=== PATIENT | female | born 1995 | race Caucasian/White ===

== ENCOUNTER → 2018-02-03 14:05 | Outpatient (CLI) | payer BC, SELFPAY ==
[2018-02-03 16:01] LABS: hCG Titer Quant., Serum < 1 mIU/mL (<9 non-preg)
== END ==
PROVIDERS: Visit Provider Obstetrics & Gynecology
DX: O20.0 Threatened abortion (principal)
CPT/HCPCS: 36415; 84702; 86850; 86900

== ENCOUNTER 2025-06-12 06:28 | Emergency (ER) | payer SELFPAY ==
[2025-06-12 06:28] VITALS: BP 150/95; PULSE 81; RESP 18; TEMP 36.9; O2SAT 99; BMI 34.7
[2025-06-12 06:31] VITALS: BP 142/85; PULSE 81; RESP 18; TEMP 36.9; O2SAT 99
--- NOTE | 2025-06-12 06:50 | EDS_ITS ---
HPI HPI - URI History of Present Illness Chief Complaint: Sore Throat Informant: patient Onset/Context/Timing Onset: Days Context: Gradual Onset Timing: Continuous Current Severity: Mild Maximum Severity: Mild Narrative Narrative: Healthy 29-year-old female no CeeNU past medical or surgical history. States she has had a sore throat for the last several days initially both sides now primarily left. Mild left earache. Denies chills. Subjectively has felt warm. Able to swallow. Prior similar symptoms: Yes Recent Illness/Hospitalization: No ROS ROS ED ROS Narrative Sore throat. Subjective fever. Constitutional Constitutional ED: Reports fever(s) and subjective Eyes Eyes: Denies blurry vision ENT ENT ED: Reports ear pain and sore throat Cardiovascular Cardiovascular: Denies chest pain Respiratory/Chest Respiratory/Chest: Denies cough or dyspnea Gastrointestinal Gastrointestinal: Denies abdominal pain Genitourinary Genitourinary ED: Denies dysuria or hematuria Musculoskeletal Musculoskeletal: Denies arthralgias or back pain Integumentary Denies abscess or Abrasions Neurologic Neurologic: Denies headache(s) Psychiatric Psychiatric: Denies anxiety or depression Endocrine Endocrinology: Denies cold intolerance Hematologic/Lymphatic Hematologic/Lymphatic: Denies easy bleeding, easy bruising or lymphadenopathy Allergic/Immunologic Allergic/Immunologic ED: Denies mouth swelling, tongue swelling or urticaria PFSH PFSH no medical history Home Medications ?Medication ?Instructions ?Recorded ?Last Taken ?Type Control 06/06/14 Unknown History amoxicillin 500 mg capsule 500 mg PO TID 7 days #21 ca ps 06/12/25 Unknown Rx Allergy/AdvReac Type Severity Reaction Status Date / Time No Known Allergies Allergy Verified 08/19/22 14:01 Surgical History Hx of cholecystectomy Social History Smoking Status: Current every day smoker tobacco type: e-cigarettes EXAM Physical Exam Narrative Exam Narrative: 29-year-old female sitting upright in bed vital signs stable afebrile does not look septic toxic no distress. No family present. H EENT exam pupils round reactive light. Moist mucous membranes. Posterior pharynx left tonsil is enlarged both have exudate left tonsil is red. She is able to swallow no stridor or drooling. Able to handle her own secretions. No peritonsillar abscess. TMs are normal. Neck she is tender and mildly swollen lymphadenopathy on the left anterior chain. Posterior chain is nontender. Trachea midline. Back nontender. Lungs clear equal and symmetrical bilaterally. Heart regular rhythm rate about 80 no murmur. Chest wall and ribs are nontender. Abdomen s oft nontender. There is no axillary or inguinal lymphadenopathy. Moving all 4 extremities. Nontender no edema no rash. Neurologically she is awake and alert. Answering questions following commands. Const Vital Signs: 06/12/25 06:28 06/12/25 06:31 Temperature 98.4 F 98.4 F Temperature Source Oral Oral Pulse Rate 81 81 Respiratory Rate 18 18 Blood Pressure 150/95 H 142/85 H Blood Pressure Mean 113 104 Pulse Ox 99 99 Oxygen Delivery Method Room Air Room Air Positive well nourished and well developed; Negative for cachectic or contractures General Appearance ED: well developed; Negative for cachectic, contractures, cyanotic, diaphoretic or pallor Nutritional Appearance: Negative for cachectic HEENT Reports moist mucous membranes HEENT Narrative: Bilateral tonsils with exudate. Left mildly red and swollen. Right tonsil is not enlarged. No peritonsillar abscess. Able to handle her own secretions. normocephalic Throat: Negative for posterior oropharynx normal Eyes PERRL and EOMs intact bilaterally Neck No no lymphadenopathy, supple, no meningeal signs and no JVD General: lymphadenopathy; Negative for anterior neck swelling Resp normal respiratory effort and clear to auscultation bilaterally Cardio S1 normal heart sound, S2 normal heart sound and no murmurs GI non-tender, non-distended and no masses Auscultation: normoactive bowel sounds Palpation: soft; Negative for tender, guarding, hepatomegaly, splenomegaly or mass Back/Spine no CVA tenderness and normal ROM General Back: Negative for CVA tenderness Cervical Spine: Negative for cervical spine tenderness Thoracic Spine / Upper Back: Negative for thoracic spinal tenderness Lumbar Spine / Lower Back: Negative for lumbar spinal tenderness Sacrum: Negative for tenderness Extremity normal to inspection and full ROM General Extremety ED: Negative for cyanosis or tenderness General Extremity: Negative for cyanosis Neuro oriented x3 and CN's II-XII intact bilaterally Sensorium / Orientation: alert, oriented to person, oriented to place and oriented to time; Negative for orientation impaired Motor Exam: strength 5/5 throughout Psych mental status grossly normal Skin General Skin Exam: Negative for jaundice or pallor Lesions: no lesions Rashes: no rashes Trauma: Negative for abrasion or laceration MDM MDM MDM Narrative Medical decision making narrative: 29-year-old female sore throat with left earache with left tonsil is red mildly swollen with exudate consistent with strep pharyngitis. Patient I discussed treatment options she deferred testing. She be started on amoxicillin 500 3 times daily for 7 days. First dose given here. Warm salt water gargle. Follow-up if not improving. She has no axillary or inguinal lymphadenopathy no posterior chain lymphadenopathy I do not think this is mono. History & Record Review Discussion w/independent historian: Patient Additional record(s) reviewed:: Prior inpatient record, Prior outpatient record, Prior ED visit and Prior labs Discharge Plan Triage Chief Complaint: Sore Throat ED Provider: Juan Ramon Alvarez Dx/Rx/DC Orders Clinical Impression: Strep throat Instructions: ED Tonsillitis (Strep Throat) Prescriptions: New amoxicillin 500 mg capsule 500 mg PO TID 7 Days Qty: 21 0RF No Action Control Primary Care Provider: Care Physician,No Primary Referrals: Clint Franco MD [Med Staff - Civil Litigation Attorney] - 3-5 Days if not improving Care Physician,No Primary [Primary Care Provider] - Activity Restrictions/Additional Instructions: The antibiotic amoxicillin 3 times a day. Till gone. Motrin for pain and swelling and Tylenol for pain. Warm salt water gargling. Clinically this looks like strep throat. Plenty of fluids. Rest. Follow-up if not improving. Return if worse. It may take 3 days or so for the antibiotics to really start kicking in and you start to feel better. Make sure you finish antibiotics. Print Language: Jamaican Disposition Disposition: Home, Self Care
[2025-06-12 06:54] VITALS: BP 147/75; PULSE 69; RESP 18; TEMP 36.7; O2SAT 99
[2025-06-12] MEDS: AMOXICILLIN 500 MG CAPSULE PO (06:57)
--- OUTSIDE RECORDS SUMMARY | 2025-06-12 07:09 | XMS RPT_ITS | CCD ---
Author Organization [facility] Care Team Providers Care Inverted Block Operator Name Role Phone Care Physician, No Primary Primary Care Unava ilioana Care Physician, No Primary Referring William Vanegas Attending Unavailable Care Physician, No Primary Referring William Vanegas Attending Unavailable Care Physician, No Primary Primary Care Brie Jacobs PA, William Attending Jolene Jacobs PA, William Attending Unavailable Care Physician, No Primary Primary Care Provider Unavailable Antonio MOONEY, Dr. Delatorre Emergency Provider Medications Current Medications Medication Drug Class(es) Dates Sig (Normalized) Sig (Original) amoxicillin 500 mg oral capsule (1 source) Penicillin-class Antibacterial Start: 06-12-2025 take 1 capsule by mouth three times daily Amoxicillin 500 mg capsule Active 500 mg PO THREE TIMES A DAY 21 7 0 June 12, 2025 12:00am Control (1 source) Start: 06-06-2014 Control Active June 06, 2014 12:00am Completed/Discontinued Medications Medication Drug Class(es) Dates Sig (Normalized) Sig (Original) phenazopyridine hydrochloride 200 mg oral tablet (1 source) Start: 06-06-2014 End: 10-04-2021 take 1 tablet by mouth three times daily Phenazopyridine 200 MG tablet Discontinued 200 mg PO THREE TIMES A DAY 9 0 June 06, 2014 12:00am October 04, 2021 8:39am sulfamethoxazole 800 mg / trimethoprim 160 mg oral tablet (1 source) Dihydrofolate Reductase Inhibitor Antibacterial, Sulfonamide Antimicrobial Start: 06-06-2014 End: 10-04-2021 Sulfamethoxazole-Tr imethoprim 1 TABLET tablet Discontinued 1 {tbl} PO TWICE A DAY 10 0 June 06, 2014 12:00am October 04, 2021 8:40am Problems Active Problems Problem Classification Problem Date Documented Date Episodic/Chronic Other nervous system disorders (1 source) Loss of sense of smell; Translations: [Anosmia] 10-04-2021 Episodic Other upper respiratory infections (2 sources) Streptococcal sore throat; Translations: [Streptococcal pharyngitis] 06-12-2025 Episodic Viral infection (1 source) Disease caused by 2019-nCoV; Translations: [COVID-19] 10-04-2021 Episodic Viral infection (1 source) COVID-19; Translations: [U07.1 - COVID-19] Onset: 01-29-2022 Past or Other Problems Problem Classification Problem Date Documented Da te Episodic/Chronic Other nervous system disorders (1 source) Anosmia; Translations: [R43.0 - Anosmia] Onset: 01-29-2022 Episodic Results Test Name Value Interpretation Reference Range Facil it Office Visit Reporton 2024 Office Visit Report [facility] [address] [place] [address] OFFICE VISIT Date of Service: 03/03/25 MR#: [id number] Acct: [id number] Patient: TACO GROSSMAN Rep #: [id number] : 1995 Provider: RENA Hernandez Age/Sex: 29/F Location: [facility] Status: Signed Intake Intake Visit Reasons: PE NON DOT DRUG SCREEN,ISAIAS/ [place] Office Procedures [facility] Billing Sheet Testing Breath Alcohol Test Pre-Employment: Yes Pre-Employment Drug Screen: Yes Pre-Employment PE: Yes 03/09/25 0757 Date William CHASE Cosigner Signature: Date (if applicable) CC: Normal [facility] Urgent Care Visit Reporton 0 03-03-2025 Urgent Care Visit Report [facility] [address] , [address] [place] [address] OFFICE VISIT Date of Service: 03/03/25 MR#: [id number] Acct: [id number] Name: TACO GROSSMAN Rep #: [id number] : 1995 Provider: RENA Hernandez Age/Sex: 29/F Location: [facility] Status: Signed Intake Intake Visit Reasons: PE NON DOT PHYSICAL/ [place] [facility] HPI HPI Details: TACO GROSSMAN, is a 29 F who presents to the office today for preemployment physical. Please see corresponding scanned documents with today's date. Office Procedures Physical Exam Coding PE Coding Pre-employment PE: Yes Coding Level of Care Code Attention David Diagnoses Encounter for pre-employment health screening examination Z02.1 Assessment and Plan Assessment and Plan (1) Encounter for pre-employment health screening examination: Status: Acute 03/03/25 1221 Date William Quiñones Signature: Date (if applicable) CC: Normal [facility] Urgent Care Visit Reporton 1 Urgent Care Visit Report [facility] [address] [place] [address] OFFICE VISIT Date of Service: 08/19/22 MR#: [id number] Acct: [id number] Name: TACO GROSSMAN Rep #: [id number] : 1995 Provider: RENA Jacobs Age/Sex: 26/F Location: [facility] Status: Signed Intake Vital Signs 08/19/22 14:00 BP 142/82 H Blood Pressure Location Lt brachial Position Sitting Respiration 15 Pulse 82 Pulse Source Monitor Temp 97.6 F L Temp Source Temporal Pulse Oximetry (%) 98 Oxygen Delivery Method room air Intake Visit Reasons: FEVER/SORE THROAT Allergies No Known Allergies Allergy (Verified 08/19/22 14:01) Medications Control 06/06/14 [History Confirmed 08/19/22] [facility] Surgical History Hx of cholecystectomy Social History Smoking Status: Unknown if ever smoked HPI HPI Details: TACO GROSSMAN, is a 26 F who presents to the office today for complaint of fever and sore throat. Patient states being concerned for strep and is requesting a strep test at this time. She reports a fever with a T-max of 102.1 ???F which has come down with Tylenol. No cough, shortness of breath or difficulty breathing. No nausea, vomiting, diarrhea. No other associated symptoms or alleviating/aggravatin g factors. ROS Const Constitutional: No other (6 system ROS completed with pertinent findings in HPI otherwise normal.) Exam Const General: cooperative and well developed HENMT Head: normal to inspection and atraumatic Ears: hearing grossly normal bilaterally Nose: nasal discharge clear Face and sinus: normal facial exam Mouth: oral mucosae normal Throat: abnormal tonsil bilaterally hypertrophy 1+ Resp Effort Inspection: normal respiratory effort and no audible wheezes Auscultation: Bilateral: Clear to Auscultation Cardio Palpation: normal PMI Rate: regular rate Rhythm: regular rhythm Neuro General: patient alert and CN's II-XI intact bilaterally Psych Appearance: grossly normal Mental Status: mental status grossly normal Results POC Dorota Rapid Strep POC Dorota Rapid Strep Negative Last Edit by Rhona Burnette RN on 08/19/22 14:17 Coding Level of Care Code Off vis,est,level 3 Diagnoses Acute pharyngitis J02.9 Assessment and Plan Assessment and Plan (1) Acute pharyngitis: Status: Acute Plan: Patient tested negative for strep in the office today. Encouraged to get plenty of rest, drink lots of clear liquids, and use Tylenol or Ibuprofen (unless contraindicated) for fever and comfort. Patient also educated on other symptomatic management techniques. To be seen in 7-10 days if no improvement; sooner if worsening of symptoms. Patient advised of potential red flags and when appropriate to report to the ED. Patient verbalized understanding and agreement with all the above. Orders: Orders POC Dorota Rapid Strep A Today 08/19/22 1539 Date William Quiñones Signature: Date (if applicable) CC: Normal [facility] Urgent Care Visit Reporton 1 12-05-2020 Urgent Care Visit Report [facility] [address] [place] [address] [address] [place] [address] OFFICE VISIT Date of Service: 10/04/21 MR#: [id number] Acct: [id number] Name: TACO GROSSMAN Rep #: [id number] : 1995 Provider: RENA Jacobs Age/Sex: 25/F Location: [facility] Status: Signed Intake Vital Signs 10/04/21 07:34 Height 5 ft 3.5 in Weight: 212 lb BMI 36.9 BP 122/80 H Blood Pressure Location Lt brachial Position Sitting Respiration 15 Pulse 104 H Pulse Source Monitor Temp 97.6 F L Temp Source Temporal Pulse Oximetry (%) 96 Oxygen Delivery Method room air Intake Visit Reasons: HEADACHE,LOSS TASTE/SMELL-COVID TEST Allergies No Known Allergies Allergy (Verified 10/04/21 07:39) Medications Control 06/06/14 [History Confirmed 10/04/21] [facility] Surgical History (Updated 10/04/21 @ 07:41 by Rhona Burnette RN) Hx of cholecystectomy Social History Smoking Status: Unknown if ever smoked HPI HPI Details: TACO GROSSMAN, is a 25 F who presents to the office today for complaint of headache, sinus congestion and loss of taste and smell for the past 3 days. Patient also reports a fever however is unaware of her T-max. No nausea, vomiting, diarrhea. No cough, shortness of breath or difficulty breathing. No other associated symptoms or alleviating/aggravatin g factors. ROS Const Constitutional: Positive for other (6 system ROS completed with pertinent findings in the HPI otherwise normal.) Exam Const General: cooperative and healthy appearing HENMT Head: normal to inspection Ears: hearing grossly normal bilaterally, TM's normal bilaterally and EAC's normal Nose: nasal discharge purulent Face and sinus: sinus tenderness frontal and maxillary Mouth: oral mucosae normal Throat: abnormal tonsil bilaterally erythema and hypertrophy 1+ and postnasal drainage Resp Effort Inspection: normal respiratory effort Auscultation: Bilateral: Clear to Auscultation Cardio Palpation: normal PMI Rate: regular rate Rhythm: regular rhythm Neuro General: patient alert and CN's II-XI intact bilaterally Psych Appearance: grossly normal Mental Status: mental status grossly normal Results POC TONY CoV-2 PCR POC TONY CoV-2 PCR Detected Last Edit by Rhona Burnette RN on 10/04/21 07:52 Negative for Influenza A and B Coding Level of Care Code Off vis,new,level 3 Diagnoses COVID-19 U07.1 Assessment and Plan Assessment and Plan (1) COVID-19: Status: Acute Plan - RENA Bridges: Patient tested positive for Covid using rapid PCR testing in the office today. Patient advised she needs to quarantine for 10 days from symptom onset. Encouraged to get plenty of rest, drink lots of clear liquids, and use Tylenol or Ibuprofen (unless contraindicated) for fever and comfort. Patient also educated on other symptomatic management techniques. To be seen in 7-10 days if no improvement; sooner if worsening of symptoms. Patient advised of potential red flags and when appropriate to report to the ED. Patient verbalized understanding and agreement with all the above. Plan Details Other Orders: Orders: POC Rapid TONY Cov-2 PCR Today R43.0 10/04/21800 Date William Quiñones Signature: Date (if applicable) CC: Normal [facility] Vital Signs Date Time Vital Sign Value Performing Clinician Ramezi darling 06-12-2025 06:54-0400 Body temperature 98.1 [degF] No Primary Care Physician [facility] 06-12-2025 06:54-0400 Diastolic blood pressure 75 mm[Hg] No Primary Care Physician [facility] 06-12-2025 06:54-0400 Heart rate 69 /min No Primary Care Physician [facility] 06-12-2025 06:54-0400 Respiratory rate 18 /min No Primary Care Physician [facility] 06-12-2025 06:54-0400 SaO2% (BldA) [Mass fraction] 99 % No Primary Care Physician [facility] 06-12-2025 06:54-0400 Systolic blood pressure 147 mm[Hg] No Primary Care Physician [facility] 06-12-2025 06:28-0400 Body height 160.02 cm No Primary Care Physician [facility] 06-12-2025 06:28-0400 Body mass index (BMI) [Ratio] 34.7 kg/m2 No Primary Care Physician [facility] 06-12-2025 06:28-0400 Body weight 88.8 kg No Primary Care Physician [facility] Encounters Encounter Date Encounter Type Care Provider Facility Start: 06-12-2025 End: 06-12-2025 Emergency department patient visit No Primary Care Physician -Emergency Department Work Phone: Start: 03-03-2025 End: 03-03-2025 ambulatory William CHASE Facility:[facility] Start: 08-19-2022 End: 08-19-2022 ambulatory No Primary Care Physician Facility:[facility] Start: 10-04-2021 End: 10-04-2021 ambulatory No Primary Care Physician Facility:[facility] Plan of Treatment Date Care Activity Detail Author Start: 06-12-2025 [facility] Patient Education ED Tonsillitis (Strep Throat) [facility] Work Phone: Payers Date Payer Category Payer Self-pay 2021 Unknown [id number] Unknown [id number] Unknown [id number] Unknown [id number] Unknown [id number] Unknown [id number] Unknown [id number] Social History Date Type Detail Facility Start: 06-12-2025 Tobacco smoking stat us AZIS Smokes tobacco daily (finding) [facility] Start: 10-04-2021 Alcohol Alcohol [facility] Start: 10-04-2021 Tobacco Use Tobacco Use [facility] Start: 1995 Sex Assigned At Female [facility] Evaluation note Note Date & Type Note Facility Evaluation note No assessment information availa ble [facility] Work Phone: Hospital Discharge instructions Note Date & Type Note Facility Hospital Discharge instructions Additional Instructions The antibiotic amoxicillin 3 times a day. Till gone. Motrin for pain and swelling and Tylenol for pain. Warm salt water gargling. Clinically this looks like strep throat. Plenty of fluids. Rest. Follow-up if not improving. Return if worse. It may take 3 days or so for the antibiotics to really start kicking in and you start to feel better. Make sure you finish antibiotics. [facility] Work Phone: Reason for referral (narrative) Note Date & Type Note Facility Reason for referral (narrative) No reason for referral information available [facility] Work Phone: Summary Purpose Family History No Family History Records FoundNo Family History Records Found Advance Directives Advance Directive Response Recorded Date/ Time Do you have a Healthcare Power of Graduate Teacher Education? No June 12, 2025 6:28am Chief Complaint and Reason for Visit Chief Complaint Admit Date sore throat June 12, 2025 6: 28am Additional Source Comments INFORMATION SOURCE (unrecogn ized section and content) DATE CREATED AUTHOR 08/20/2022 [facility] DATE CREATED AUTHOR AUTHOR'S ZOILA BRUSH 03/10/2025 [facility] Care Teams (unrecognized sec tion and content) Team Status: Active Member Role/Relationship Status Dates No Primary Care Physician Primary Care Provider Active Team Status: Inactive Member Role/Relationship Status Dates No Primary Care Physician Primary Care Provider Active Start: June 12, 2025 End: June 12, 2025 Dr. Juan Ramon Alvarez MD Emergency Provider Active S tart: June 12, 2025 End: June 12, 2025 Goals (unrecognized section and content) Goals may be documented in a n alternate section FOR RECORDS PERTAINING TO PATIENTS WHO ARE OR HAVE BEEN ENROLLED IN A CHEMICAL DEPENDENCY/SUBSTANCEABUSE PROGRAM, SOME INFORMATION MAY BE OMITTED. This clinical summary was aggregated from multiple sources. Caution should be exercised in using it in the provision of clinical care. This summary normalizes information from multiple sources, and as a consequence, information in this document may materially change the coding, format and clinical context of patient data. In addition, data may be omitted in some cases. CLINICAL DECISIONS SHOULD BE BASED ON THE PRIMARY CLINICAL RECORDS. [employer] provides no warranty or guarantee of the accuracy or completeness of information in this document.
== END 2025-06-12 07:00 | disposition home or self-care (01) ==
LOC: ED 06:58
PROVIDERS: Emergency Provider Emergency Medicine; Visit Provider Emergency Medicine
DX: J02.0 Streptococcal pharyngitis (principal); F17.290 Nicotine dependence, other tobacco product, uncomplicated
CPT/HCPCS: 99282